=== PATIENT | male | born 1980 | race Hispanic/Latino ===

== ENCOUNTER 2023-12-26 11:44 | Inpatient (IN) | payer OTHER ==
[2023-12-26 12:30] VITALS: BMI 36.9
[2023-12-26 13:13] LABS: #Basophils 0.03 10x3/uL (0.0-0.2); %Basophils 0.3 % (0.0-1.0); %Lymphocytes 14.9 % (21.0-51.0); %Monocytes 11.4 % (0.0-10.0); %Neutrophils 71.9 % (42.0-75.0); Hematocrit 33.9 % (42.0-52.0); Hemoglobin 10.5 g/dL (14.0-18.0); Mean Corpuscular Hemoglobin 24.6 pg (27.0-31.0); Mean Corpuscular Volume 79.4 fL (78.0-98.0); Platelet Count 490 10x3/uL (130-400); RBC Distribution Width 16.2 % (11.5-14.5); Red Blood Cell (RBC) Count 4.27 mill/uL (4.70-6.10)
[2023-12-26 13:25] LABS: Anion Gap 13 mmol/L (10-20); BUN (Urea Nitrogen) 13 mg/dL (8.9-20.6); Calc. Creatinine Clearance 147 mL/min (70-130); Calcium 9.4 mg/dL (7.8-10.44); Carbon Dioxide 24 mmol/L (22-29); Chloride 104 mmol/L (98-107); Estimated GFR 92; Glucose 102 mg/dL (70-105); Potassium 3.9 mmol/L (3.5-5.1); Sodium 137 mmol/L (136-145)
[2023-12-26 13:37] LABS: CRP,High Sensitivity (Inhouse) 20.47 mg/dL (< or = 0.5)
[2023-12-26] MEDS: HYDROcodone/Acetaminophen 10/325 mg Tablet PO PRN (13:40)
[2023-12-26] MEDS: traMADol HCl 50 MG TAB PO PRN (18:36)
[2023-12-27] MEDS: Morphine 2 MG/ML VIAL SLOW IVP PRN (00:01)
[2023-12-27] MEDS: Ketorolac Tromethamine 30 MG (1 mL) VIAL IVP PRN (00:36)
[2023-12-27] MEDS ORDERED: PROPOFOL 20 ML ONE (11:56)
[2023-12-27] MEDS ORDERED: Lidocaine 1% PF 5 ML VIAL ONE (11:56)
[2023-12-27] MEDS ORDERED: fentaNYL 50 mcg/mL 1 mL Vial ONE ×2 (11:56→13:44)
[2023-12-27] MEDS ORDERED: CEFAZOLIN 2 GM VIAL ONE (12:35)
[2023-12-27] MEDS ORDERED: Ondansetron PF 4 MG/2 ML Vial ONE (13:05)
[2023-12-27] MEDS ORDERED: Dexamethasone 20 MG/5 ML VIAL ONE (13:05)
[2023-12-27] MEDS ORDERED: PHENYLEPHRINE-NS 100 MCG/ML 10 ML SYRINGE ONE (13:43)
[2023-12-27] MEDS ORDERED: Vancomycin 1 GM VIAL ONE ×2 (13:52→14:00)
[2023-12-27] MEDS ORDERED: Metoprolol Tartrate 5 MG (5 mL) VIAL ONE (14:30)
[2023-12-27] MEDS ORDERED: fentaNYL PF 100 MCG/2 ML SYRINGE ONE (15:09)
[2023-12-27] MEDS ORDERED: HYDROmorphone 0.5 MG/0.5 ML SYRINGE ONE ×2 (15:10→16:08)
[2023-12-27] MEDS: Piperacillin/Tazobactam 3.375 GM in Sodium Chloride 0.9% 100 ML IVPB SCH ×2 (18:09→18:36)
[2023-12-27] MEDS ORDERED: Vancomycin 1 GM in Sodium Chloride 0.9% 250 ML 250 ML IVPB SCH (21:00)
[2023-12-27] MEDS: Vancomycin (BATCH) 2 GM in Premix 1 BAG IVPB SCH (22:18)
[2023-12-28] MEDS: Piperacillin/Tazobactam 3.375 GM in Sodium Chloride 0.9% 100 ML IVPB SCH (00:54)
[2023-12-28 05:02] LABS: #Basophils Less than 0.03 10x3/uL (0.0-0.2); #Eosinophils Less than 0.03 10x3/uL (0.0-0.7); %Basophils 0.2 % (0.0-1.0); %Lymphocytes 6.9 % (21.0-51.0); %Monocytes 6.6 % (0.0-10.0); %Neutrophils 85.7 % (42.0-75.0); Hematocrit 29.4 % (42.0-52.0); Hemoglobin 9.3 g/dL (14.0-18.0); Mean Corpuscular HGB CONC 31.6 g/dL (32.0-36.0); Mean Corpuscular Hemoglobin 24.5 pg (27.0-31.0); Mean Corpuscular Volume 77.4 fL (78.0-98.0); Mean Platelet Volume 8.1 fL (7.4-10.4); Platelet Count 488 10x3/uL (130-400); RBC Distribution Width 15.9 % (11.5-14.5)
[2023-12-28 05:24] LABS: Vancomycin, Random 28.6 ug/mL (See Comment)
[2023-12-28] MEDS: Ondansetron PF 4 MG/2 ML Vial IVP PRN (08:47)
[2023-12-28] MEDS ORDERED: Vancomycin (BATCH) 1.75 GM in Premix 1 BAG IVPB SCH (09:00)
[2023-12-28] MEDS: Vancomycin 1 GM in Premix 1 BAG IVPB SCH (10:39)
[2023-12-28] MEDS: cefTRIAXone\\ROCEPHIN 2 GM in Sodium Chloride 0.9% 100 ML IVPB SCH (15:22)
[2023-12-28 15:27] VITALS: BMI 36.9
[2023-12-29 04:10] LABS: #Basophils 0.03 10x3/uL (0.0-0.2); %Basophils 0.3 % (0.0-1.0); %Eosinophils 2.8 % (0.0-10.0); %Lymphocytes 16.4 % (21.0-51.0); %Monocytes 9.3 % (0.0-10.0); %Neutrophils 70.7 % (42.0-75.0); Hematocrit 30.3 % (42.0-52.0); Hemoglobin 9.2 g/dL (14.0-18.0); Mean Corpuscular HGB CONC 30.4 g/dL (32.0-36.0); Mean Corpuscular Hemoglobin 24.5 pg (27.0-31.0); Mean Corpuscular Volume 80.8 fL (78.0-98.0); Mean Platelet Volume 8.1 fL (7.4-10.4); Platelet Count 490 10x3/uL (130-400); Red Blood Cell (RBC) Count 3.75 mill/uL (4.70-6.10)
[2023-12-29 04:24] LABS: Vancomycin, Random 32.2 ug/mL (See Comment)
[2023-12-29] MEDS: Lidocaine 1% (PF) 30 ML VIAL ONE (09:00)
[2023-12-29] MEDS ORDERED: Sodium Bicarbonate 2.5 MEQ/5 ML SDV ONE (09:39)
[2023-12-29] MEDS ORDERED: Lidocaine 1% PF 5 ML VIAL ONE (09:39)
[2023-12-29] MEDS: Polyethylene Glycol 3350 17 GM Packet PO SCH (09:49)
[2023-12-29] MEDS: Senokot 8.6 MG TAB PO SCH ×2 (09:49→21:20)
[2023-12-29] MEDS: DAPTOmycin 1,000 MG in Sodium Chloride 0.9% 50 ML IVPB SCH (12:33)
[2023-12-29] MEDS: Lidocaine 1% (PF) 30 ML VIAL FS SCH (14:03)
[2023-12-29] MEDS: Heparin 5,000 UNITS/ML VIAL SC SCH (15:17)
[2023-12-29] MEDS: cefTRIAXone\\ROCEPHIN 2 GM in Sodium Chloride 0.9% 100 ML IVPB SCH (15:17)
[2023-12-29] MEDS: Bisacodyl 5 MG TAB PO PRN (15:27)
[2023-12-29] MEDS: Acetaminophen 500 MG TAB PO PRN (15:27)
[2023-12-30 04:42] LABS: #Basophils Less than 0.03 10x3/uL (0.0-0.2); %Basophils 0.2 % (0.0-1.0); %Eosinophils 3.8 % (0.0-10.0); %Lymphocytes 15.5 % (21.0-51.0); %Monocytes 10.8 % (0.0-10.0); %Neutrophils 69.1 % (42.0-75.0); Hematocrit 27.8 % (42.0-52.0); Hemoglobin 8.7 g/dL (14.0-18.0); Mean Corpuscular HGB CONC 31.3 g/dL (32.0-36.0); Mean Corpuscular Hemoglobin 24.9 pg (27.0-31.0); Mean Corpuscular Volume 79.7 fL (78.0-98.0); Platelet Count 473 10x3/uL (130-400); Red Blood Cell (RBC) Count 3.49 mill/uL (4.70-6.10)
[2023-12-30] MEDS: Polyethylene Glycol 3350 17 GM Packet PO SCH (08:37)
[2023-12-30] MEDS ORDERED: DAPTOmycin 1,000 MG in Sodium Chloride 0.9% 50 ML IVPB SCH (12:00)
[2023-12-30] MEDS: CEFAZOLIN 2 GM in Sodium Chloride 0.9% 100 ML IVPB SCH (13:50)
[2023-12-31 05:54] LABS: Anion Gap 13 mmol/L (10-20); BUN (Urea Nitrogen) 17 mg/dL (8.9-20.6); Calc. Creatinine Clearance 68 mL/min (70-130); Calcium 9.4 mg/dL (7.8-10.44); Carbon Dioxide 26 mmol/L (22-29); Chloride 104 mmol/L (98-107); Estimated GFR 37; Glucose 113 mg/dL (70-105); Potassium 3.9 mmol/L (3.5-5.1); Sodium 139 mmol/L (136-145)
[2023-12-31] MEDS ORDERED: Labetalol HCl 100 MG/20 ML VIAL SLOW IVP PRN (11:28)
[2023-12-31] MEDS ORDERED: hydrALAZINE 20 MG/ML VIAL SLOW IVP PRN (11:28)
[2023-12-31] MEDS: diphenhydrAMINE 25 MG CAP PO PRN (13:12)
[2023-12-31] MEDS: Atorvastatin Calcium 20 MG TAB PO SCH (20:49)
[2024-01-01] MEDS ORDERED: Lisinopril 20 MG TAB PO SCH (09:00)
[2024-01-01] MEDS ORDERED: Lisinopril 10 MG TAB PO SCH (09:30)
[2024-01-01] MEDS: Lisinopril 20 MG TAB PO SCH (10:10)
[2024-01-01 11:37] LABS: #Basophils 0.05 10x3/uL (0.0-0.2); %Basophils 0.6 % (0.0-1.0); %Eosinophils 5.9 % (0.0-10.0); %Lymphocytes 17.5 % (21.0-51.0); %Monocytes 9.9 % (0.0-10.0); %Neutrophils 65.7 % (42.0-75.0); Hematocrit 31.1 % (42.0-52.0); Hemoglobin 9.5 g/dL (14.0-18.0); Mean Corpuscular HGB CONC 30.5 g/dL (32.0-36.0); Mean Corpuscular Hemoglobin 24.5 pg (27.0-31.0); Mean Corpuscular Volume 80.4 fL (78.0-98.0); Mean Platelet Volume 8.1 fL (7.4-10.4); Platelet Count 407 10x3/uL (130-400); RBC Distribution Width 15.9 % (11.5-14.5); Red Blood Cell (RBC) Count 3.87 mill/uL (4.70-6.10)
[2024-01-01 12:00] LABS: ALT (SGPT) 27 U/L (8-55); AST (SGOT) 21 U/L (5-34); Albumin 2.6 g/dL (3.5-5.0); Alkaline Phosphatase 136 U/L (40-110); Anion Gap 12 mmol/L (10-20); BUN (Urea Nitrogen) 15 mg/dL (8.9-20.6); Bilirubin, Total 0.2 mg/dL (0.2-1.2); Calc. Creatinine Clearance 76 mL/min (70-130); Calcium 9.2 mg/dL (7.8-10.44); Carbon Dioxide 27 mmol/L (22-29); Chloride 104 mmol/L (98-107); Estimated GFR 42; Globulin 5.2 g/dL (2.4-3.5); Glucose 101 mg/dL (70-105); Potassium 4.1 mmol/L (3.5-5.1); Protein, Total 7.8 g/dL (6.0-8.3); Sodium 139 mmol/L (136-145)
[2024-01-01] MEDS: Sodium Chloride 0.9% 100 ML ONE (14:49)
[2024-01-01] MEDS: Ferrous Sulfate 325 MG TAB PO SCH (16:20)
[2024-01-01] MEDS: Atorvastatin Calcium 20 MG TAB PO SCH (20:26)
[2024-01-02 05:10] LABS: #Basophils 0.03 10x3/uL (0.0-0.2); %Basophils 0.4 % (0.0-1.0); %Eosinophils 6.1 % (0.0-10.0); %Lymphocytes 17.7 % (21.0-51.0); %Monocytes 10.2 % (0.0-10.0); %Neutrophils 65.2 % (42.0-75.0); Hematocrit 31.6 % (42.0-52.0); Hemoglobin 9.6 g/dL (14.0-18.0); Mean Corpuscular HGB CONC 30.4 g/dL (32.0-36.0); Mean Corpuscular Hemoglobin 24.6 pg (27.0-31.0); Mean Corpuscular Volume 80.8 fL (78.0-98.0); Mean Platelet Volume 7.9 fL (7.4-10.4); Platelet Count 341 10x3/uL (130-400); RBC Distribution Width 15.7 % (11.5-14.5); Red Blood Cell (RBC) Count 3.91 mill/uL (4.70-6.10)
[2024-01-02 05:27] LABS: Anion Gap 11 mmol/L (10-20); BUN (Urea Nitrogen) 16 mg/dL (8.9-20.6); CRP,High Sensitivity (Inhouse) 8.78 mg/dL (< or = 0.5); Calc. Creatinine Clearance 67 mL/min (70-130); Calcium 9.4 mg/dL (7.8-10.44); Carbon Dioxide 30 mmol/L (22-29); Chloride 103 mmol/L (98-107); Estimated GFR 36; Glucose 100 mg/dL (70-105); Sodium 140 mmol/L (136-145)
[2024-01-02] MEDS ORDERED: Lisinopril 10 MG TAB PO SCH (09:00)
[2024-01-02] MEDS ORDERED: Lisinopril 20 MG TAB PO SCH (09:00)
[2024-01-02] MEDS: Lidocaine 1% (PF) 30 ML VIAL ONE (18:05)
[2024-01-03 05:30] LABS: Anion Gap 14 mmol/L (10-20); BUN (Urea Nitrogen) 15 mg/dL (8.9-20.6); Calc. Creatinine Clearance 74 mL/min (70-130); Calcium 9.1 mg/dL (7.8-10.44); Carbon Dioxide 26 mmol/L (22-29); Chloride 102 mmol/L (98-107); Estimated GFR 41; Glucose 96 mg/dL (70-105); Sodium 138 mmol/L (136-145)
[2024-01-03] MEDS: Albumin 25% 25 GM (100 mL) BOT IVPB SCH (09:26)
[2024-01-03] MEDS: Sodium Chloride 0.9% 1,000 ML IV SCH (09:26)
[2024-01-03] MEDS: CEFAZOLIN 2 GM VIAL ONE (14:22)
[2024-01-03] MEDS: Betamethasone 0.1% Cream 15 GM TUBE TOP SCH ×2 (17:20→21:24)
[2024-01-03 19:48] LABS: Anion Gap 15 mmol/L (10-20); BUN (Urea Nitrogen) 15 mg/dL (8.9-20.6); Calc. Creatinine Clearance 70 mL/min (70-130); Calcium 8.9 mg/dL (7.8-10.44); Carbon Dioxide 26 mmol/L (22-29); Chloride 103 mmol/L (98-107); Estimated GFR 38; Glucose 116 mg/dL (70-105); Potassium 3.9 mmol/L (3.5-5.1); Sodium 140 mmol/L (136-145)
[2024-01-04 07:14] LABS: Anion Gap 15 mmol/L (10-20); BUN (Urea Nitrogen) 13 mg/dL (8.9-20.6); Calc. Creatinine Clearance 72 mL/min (70-130); Calcium 9.3 mg/dL (7.8-10.44); Carbon Dioxide 24 mmol/L (22-29); Chloride 104 mmol/L (98-107); Estimated GFR 39; Glucose 105 mg/dL (70-105); Potassium 4.1 mmol/L (3.5-5.1); Sodium 139 mmol/L (136-145)
[2024-01-04 11:43] VITALS: TEMP 98.8
[2024-01-04 16:29] VITALS: BP 145/91
== END 2024-01-04 19:06 | disposition home or self-care (01) | DRG 464 ==
LOC: SURG A 11:44
PROVIDERS: ADMIT Orthopaedic Surgery; ATTEND Internal Medicine
PROC: 0QPH04Z Removal of Internal Fixation Device from Left Tibia, Open Approach (ICD-10-PCS; principal; 2023-12-27)
PROC: 0JBP0ZZ Excision of Left Lower Leg Subcutaneous Tissue and Fascia, Open Approach (ICD-10-PCS; 2023-12-27)
PROC: 02HV33Z Insertion of Infusion Device into Superior Vena Cava, Percutaneous Approach (ICD-10-PCS; 2023-12-29)
PROC: B548ZZA Ultrasonography of Superior Vena Cava, Guidance (ICD-10-PCS; 2023-12-29)
PROC: 0SJD3ZZ Inspection of Left Knee Joint, Percutaneous Approach (ICD-10-PCS; 2024-01-02)
DX: T84.623A Infection and inflammatory reaction due to internal fixation device of left tibia, initial encounter (principal); M00.262 Other streptococcal arthritis, left knee; N17.9 Acute kidney failure, unspecified; Y79.2 Prosthetic and other implants, materials and accessory orthopedic devices associated with adverse incidents; B96.89 Other specified bacterial agents as the cause of diseases classified elsewhere; Y83.8 Other surgical procedures as the cause of abnormal reaction of the patient, or of later complication, without mention of misadventure at the time of the procedure; Z79.1 Long term (current) use of non-steroidal anti-inflammatories (NSAID); Z79.899 Other long term (current) drug therapy; Z79.891 Long term (current) use of opiate analgesic; Z88.0 Allergy status to penicillin; Z91.013 Allergy to seafood; B95.62 Methicillin resistant Staphylococcus aureus infection as the cause of diseases classified elsewhere; E78.5 Hyperlipidemia, unspecified; D64.9 Anemia, unspecified; D72.829 Elevated white blood cell count, unspecified; R79.82 Elevated C-reactive protein (CRP); I12.9 Hypertensive chronic kidney disease with stage 1 through stage 4 chronic kidney disease, or unspecified chronic kidney disease; N18.9 Chronic kidney disease, unspecified
CPT/HCPCS: 36415; 36573; 71045; 80048; 80053; 80202; 82550; 82565; 85025; 86141; 87070; 87077; 87186; 87205; 97139; C1751; J0696; J0878; J1100; J1644; J1885; J2272; J2405; J2543; J2704; J3010; J3370; J3370-JW; J7030; P9047

== ENCOUNTER 2024-02-19 09:53 | Outpatient (CLI) | payer OTHER | END 2024-02-19 09:54 | disposition home or self-care (01) | LOC: BICRAD 09:53 | PROVIDERS: ATTEND Orthopaedic Surgery | DX: S82.142D Displaced bicondylar fracture of left tibia, subsequent encounter for closed fracture with routine healing (principal); M25.462 Effusion, left knee; M25.862 Other specified joint disorders, left knee ==